=== PATIENT | male | born 1985 ===

== ENCOUNTER 2017-02-17 21:04 | Emergency (ER) | payer SELFPAY ==
[2017-02-17 21:17] VITALS: RESP 18
[2017-02-17] MEDS ORDERED: Bacitracin 500 Units/gm Oint Foilpak UD ONE (21:23)
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
[2017-02-17] MEDS ORDERED: Bacitracin 500 Units/gm Oint Foilpak UD TOP ONE (21:56)
[2017-02-18 00:04] VITALS: BP 131/84; PULSE 89; TEMP 97.9; O2SAT 96
--- NOTE | 2017-02-18 08:29 | RAD ---
PROCEDURE: Left Wrist Radiographs. HISTORY: s/p fall COMPARISON: None. FINDINGS: BONES: Normal. No fracture. JOINTS: Normal. No dislocation. SOFT TISSUES: Normal. OTHER FINDINGS: None. IMPRESSION: Normal left wrist radiographs.
--- NOTE | 2017-02-18 08:29 | RAD ---
PROCEDURE: Radiographs of the right elbow. HISTORY: pain s/p fall COMPARISON: No prior. FINDINGS: BONES: Intra articular radial head mildly impacted fracture. No significant fracture fragment displacement JOINTS: Normal. No osteoarthritis. SOFT TISSUES: Normal. JOINT EFFUSION: Present OTHER FINDINGS: None. IMPRESSION: Intra articular radial head mildly impacted fracture. No significant fracture fragment displacement . Elbow joint effusion
--- NOTE | 2017-02-18 08:34 | CT ---
CT orbits History: Fall. Swelling. Abrasions. Comparison: None available. Technique: Multi-echo multiplanar sequences were performed through the orbits without the use of intravenous contrast. Findings: Suggestion of cortical irregularity at the tip of the nasal bone concerning for possible nondisplaced fracture. Prominent mucosal retention cyst and or polyp within the inferior right maxillary sinus measuring 1.6 x 1.6 centimeters. Small focal densities in the soft tissues of the anterior maxilla in the midline, nonspecific. This is best seen on series 2, image 47 measuring up to 5 and 3 millimeters. Mucosal retention cyst and or small polyp at the inferior left maxillary sinus. Leftward nasal septal deviation. Prominent mucosal thickening and hypertrophy of the middle and inferior left nasal turbinates. Mild mucosal thickening the ethmoid air cells. Visualized orbital globes appear preserved. Left nostril piercing. Impression: 1. Suggestion of cortical irregularity at the tip of the nasal bone concerning for possible nondisplaced fracture. 2. Small focal densities in the soft tissues of the anterior maxilla in the midline, nonspecific. This is best seen on series 2, image 47 measuring up to 5 and 3 millimeters. Clinical correlation. 3. Prominent mucosal retention cyst and or polyp within the inferior right maxillary sinus measuring 1.6 x 1.6 centimeters. Mucosal retention cyst and or small polyp at the inferior left maxillary sinus. 4. Leftward nasal septal deviation. 5. Prominent mucosal thickening and hypertrophy of the middle and inferior left nasal turbinates. 6. Mild mucosal thickening the ethmoid air cells. 7. Left nostril piercing. These findings were preliminarily reported at 11:04 p.m. on 02/17/[address] Claudine Solomon from [facility].
== END 2017-02-18 00:02 | disposition home or self-care (01) ==
LOC: C.ER 21:04
DX: S52.121A Displaced fracture of head of right radius, initial encounter for closed fracture (principal); S00.511A Abrasion of lip, initial encounter; S60.512A Abrasion of left hand, initial encounter; S60.511A Abrasion of right hand, initial encounter; V19.88XA Pedal cyclist (driver) (passenger) injured in other specified transport accidents, initial encounter; Y93.55 Activity, bike riding; Y92.410 Unspecified street and highway as the place of occurrence of the external cause
CPT/HCPCS: 29105; 70480; 73080; 73110; 90471; 90715; 96372; 99285; J1885